=== PATIENT | male | born 1950 | race Caucasian/White ===

== ENCOUNTER → 2021-07-05 | Outpatient (CLI) | payer MEDICARE, BC ==
[~2021-07-05] MED LIST: CARBATROL300 MG PO; ROPINIROLE HYDRO1 MG PO; SIMVASTATIN10 MG PO; VENLAFAXINE HY PO
== END ==
LOC: MHCPAIN 09:31
DX: M47.817 Spondylosis without myelopathy or radiculopathy, lumbosacral region (principal); M54.50 Low back pain, unspecified; M53.3 Sacrococcygeal disorders, not elsewhere classified; M51.36 Other intervertebral disc degeneration, lumbar region
CPT/HCPCS: G0463

== ENCOUNTER → 2024-01-14 | Outpatient (CLI) | payer MEDICARE, BC ==
[~2024-01-14] VITALS: Ht 175.3 cm; Wt 133.5 kg
[~2024-01-14] MED LIST changes: +COZAAR100 MG PO; +CRESTOR20 MG PO; +EFFEXOR XR75 MG/CAP PO; +GLUCOPHAGE500 MG/TAB PO; +INDERAL40 MG PO; +MELATONIN5 M1 PO; +MOBIC 7.5MG7.5 MG PO; +REQUIP2 MG PO; +Regadenoson 0.08 MG/ML 5 ML SYRINGE IV SCH; +STAY AWAKE200 MG PO
[2024-01-14 09:30] VITALS: BP 144/80; PULSE 55; TEMP 97.8
[2024-01-14 10:50] VITALS: BP 112/64; PULSE 53
[2024-01-14 10:59] VITALS: BP 96/59; PULSE 59
[2024-01-14 11:00] VITALS: BP 117/69; PULSE 63
[2024-01-14 11:01] VITALS: BP 128/76; PULSE 57
[2024-01-14 11:02] VITALS: BP 113/64; PULSE 56
== END ==
LOC: COL.RAD 08:23
DX: R06.09 Other forms of dyspnea (principal)
CPT/HCPCS: A9500-JZ; J2785